=== PATIENT | female | born 1955 | race Caucasian/White ===

== ENCOUNTER 2016-05-08 13:11 | Emergency (ER) | payer OTHER ==
[~2016-05-08] VITALS: Wt 63.0 kg
--- NOTE | 2016-05-08 15:35 | RADRPT ---
PROCEDURE: XR Chest. CLINICAL INDICATION: chest pain, cough TECHNIQUE: Single frontal view of the chest was obtained COMPARISON: None FINDINGS: The heart and mediastinum are within normal limits. The lungs are clear. There is no pleural effusion or pneumothorax. RPTAT: AA IMPRESSION: No acute disease. .Dada Avery MD, MD Date Time Electronically viewed and signed by .Dada Avery MD, on 05/08/2016 15:34 .S/
[2016-05-08] MEDS ORDERED: ACET500C5 PO (15:39)
[2016-05-08] MEDS ORDERED: D-ME473S18 PO (15:45)
[2016-05-08] MEDS ORDERED: AZIT250T94 PO (15:46)
--- NOTE | 2016-05-08 15:55 | ERD ---
ER Documentation Chief Complaint Date/Time DATE: 05/08/16 TIME: 15:52 Chief Complaint COUGH FOR THE PAST 4 DAYS. NO FEVERS. LEFT UPPER BACK PAIN HPI This 60-year-old male presents with cough and lower anterior chest pain with coughing for the last 4 days. She denies any sustained anterior chest pain. She denies any fevers, significant sputum. She denies abdominal pain, vomiting or diarrhea. She is concerned about her lung and is requesting an x-ray of ROS All systems reviewed and are negative except as per history of present illness. Medications Home Meds Active Scripts Azithromycin* (Zithromax*) 250 Mg Tablet, 250 MG PO .ZPACK DIRECTED, #6 TAB TAKE 500 MG (2 TABS) THE FIRST DAY THEN 250 MG (1 TAB) DAYS 2-5 Prov:OMER PAGAN MD 05/08/16 Dextromethorphan Hb-Promethazine Hcl (Promethazine DM Syrup) 473 Ml Syrup, 5 ML PO Q6H Y for COUGH, #4 OZ Prov:OMER PAGAN MD 05/08/16 Acetaminophen* (Tylophen*) 500 Mg Capsule, 1 CAP PO Q6H Y for PAIN AND OR ELEVATED TEMP, #15 CAP Prov:OMER PAGAN MD 05/08/16 PMhx/Soc Medical and Surgical Hx: pt denies Medical Hx, pt denies Surgical Hx Hx Alcohol Use: No Hx Substance Use: No Hx Tobacco Use: No Smoking Status: Never smoker Physical Exam Vitals Vital Signs Date Time Temp Pulse Resp B/P Pulse Ox O2 Delivery O2 Flow Rate FiO2 05/08/16 13:17 99.0 6 20 125/68 97 Physical Exam Const: [] Alert, [id number]. Head: Atraumatic Eyes: Normal Conjunctiva ENT: Normal External Ears, Nose and Mouth. Neck: Full range of motion..~ No meningismus. Resp: Clear to auscultation bilaterally. Reproducible chest pain on the lower anterior T10 rib area. Cardio: Regular rate and rhythm, no murmurs Abd: Soft, non tender, non distended. Normal bowel sounds Skin: No petechiae or rashes Back: No midline or flank tenderness Ext: No cyanosis, or edema Neur: Awake and alert Psych: Normal Mood and Affect Procedures/MDM This patient presents with a cough last 4 days with some reproducible pleuritic type pain in the anterior lower chest wall. Chest X-ray 1V Interpreted by me: Soft Tissue: No acute abnormalities Bones: No acute abnormalities Mediastinum/Cardiac Silhouette/Lungs: [No acute abnormalities]. Impression- normal 1 view chest x-ray Patient likely has chest wall strain from acute URI. Given the duration she will be treated with promethazine and Tylenol Zithromax for productive cough. She may hold the antibiotics. Patient shows no signs or symptoms to suggest cardiac chest pain, pulmonary embolism, acute abdomen, respiratory distress. Patient is advised to return for new or worsening symptoms as direcTED. The patient was stable with no new complaints during the ER course. Clinically, there is no current evidence to suggest meningitis, sepsis, acute abdomen, pneumonia, acute coronary syndrome, pulmonary embolism, or any other emergent condition appearing to require further evaluation or hospitalization. The patient should certainly return for any new or worsening symptoms per the aftercare instructions. They should otherwise follow-up with her primary care doctor for reevaluation this week. Departure Diagnosis: Primary Impression: Chest pain Chest pain type: chest pain on breathing Qualified Code: R07.1 - Chest pain on breathing Additional Impression: Cough Condition: Stable Patient Instructions: Acute Bronchitis, Chest Pain, Uncertain Cause Additional Instructions: X-ray read as normal. Recheck for new or worsening symptoms with primary care doctor. OMER PAGAN MD May 08, 2016 15:55
[2016-05-08 16:04] VITALS: BP 127/75; PULSE 76; RESP 19; TEMP 98.5
== END 2016-05-08 16:06 | disposition home or self-care (01) ==
LOC: FTE 13:11
DX: R07.1 Chest pain on breathing (principal)
CPT/HCPCS: 71010; Z7502

== ENCOUNTER 2017-04-08 16:31 | Emergency (ER) | END 2017-04-08 21:45 | disposition home or self-care (01) ==